=== PATIENT | female | born 1955 | race Caucasian/White ===

== ENCOUNTER 2020-05-06 11:52 | Emergency (ER) | payer BC ==
--- NOTE | 2020-05-06 12:31 | ER Document Report ---
ED Medical Screen (RME) - General Chief Complaint: Irregular Pulse Stated Complaint: SOB/IRREGULAR HEARTBEAT/BACK PRESSURE Time Seen by Provider: 05/06/20 12:24 - HPI Notes: 05/06/20 12:32 65-year-old female with past medical history for rapid heart rate to the emergency department with complaints of fluctuating heart rate, back pain, shortness of breath is been ongoing for the past 3 days. She states that this happened to her about a year ago and she had a stress test which was negative and her development vice president put her on metoprolol Q at bedtime. She states she has been doing well until just 3 days ago when her symptoms started again. Denies any abner chest pain. She denies any recent travel. She denies any recent surgeries. Denies any leg swelling. Brief medical exam reveals lung auscultations that are clear without any wheezing, rhonchi or rales. No murmurs rubs or gallops. I performed a brief medical screening exam on the patient determined that the patient needs further evaluation and management by main side provider. I have placed initial orders to help expedite care.
[2020-05-06 13:09] LABS: ABSOLUTE BASOPHILS # (AUTO) 0.1 10^3/uL (0.0-0.2); ABSOLUTE EOSINOPHILS # (AUTO) 0.1 10^3/uL (0.0-0.6); ABSOLUTE MONOCYTES (AUTO) 0.6 10^3/uL (0.1-1.4); ABSOLUTE NEUT (AUTO) 3.9 10^3/uL (1.7-8.2); EOSINOPHILS % (AUTO) 0.9 % (0-6); HEMATOCRIT 45.5 % (36.0-47.0); HEMOGLOBIN 15.5 g/dL (12.0-15.5); LYMPHOCYTES % (AUTO) 29.9 % (13-45); MEAN CORPUSCULAR HEMOGLOBIN 30.6 pg (27.0-33.4); MEAN CORPUSCULAR VOLUME 90 fl (80-97); MONOCYTES % (AUTO) 8.8 % (3-13); PLATELET COUNT 270 10^3/uL (150-450); RED BLOOD COUNT 5.06 10^6/uL (3.72-5.28); RED CELL DISTRIBUTION WIDTH 14.5 % (11.5-14.0); SEGMENTED NEUTROPHILS % (AUTO) 59.4 % (42-78); TOTAL CELLS COUNTED % (AUTO) 100 %; WHITE BLOOD COUNT 6.6 10^3/uL (4.0-10.5)
[2020-05-06 13:16] LABS: ALBUMIN 4.6 g/dL (3.5-5.0); ALKALINE PHOSPHATASE 88 U/L (38-126); ANION GAP 12 (5-19); ASPARTATE AMINO TRANSFERASE 19 U/L (14-36); BILIRUBIN,DIRECT 0.1 mg/dL (0.0-0.4); BILIRUBIN,TOTAL 0.5 mg/dL (0.2-1.3); BLOOD UREA NITROGEN 15 mg/dL (7-20); CARBON DIOXIDE 26 mmol/L (22-30); CHLORIDE 102 mmol/L (98-107); CREATINE KINASE 37 U/L (30-135); GLUCOSE 93 mg/dL (75-110); POTASSIUM 4.9 mmol/L (3.6-5.0); TOTAL PROTEIN 7.9 g/dL (6.3-8.2)
--- NOTE | 2020-05-06 13:21 | RADIOLOGY REPORT (SQ) ---
EXAM DESCRIPTION: CHEST 2 VIEWS IMAGES COMPLETED DATE/TIME: 05/06/2020 1:00 pm REASON FOR STUDY: chest pain palpitations COMPARISON: None. EXAM PARAMETERS: NUMBER OF VIEWS: two views TECHNIQUE: Digital Frontal and Lateral radiographic views of the chest acquired. RADIATION DOSE: NA LIMITATIONS: none FINDINGS: LUNGS AND PLEURA: No opacities, masses or pneumothorax. No pleural effusion. MEDIASTINUM AND HILAR STRUCTURES: No masses or contour abnormalities. HEART AND VASCULAR STRUCTURES: Heart normal size. No evidence for failure. BONES: No acute findings. HARDWARE: None in the chest. OTHER: No other significant finding. IMPRESSION: NO ACUTE RADIOGRAPHIC FINDING IN THE CHEST. TECHNICAL DOCUMENTATION: JOB ID: [id number] 2010 Walk[employer]in Appointment Sched[employer]- All Rights Reserved Reading location - IP/workstation name: [email or web address]
[2020-05-06 13:24] LABS: CREATINE KINASE MB 0.39 ng/mL (<4.55)
[2020-05-06 13:29] LABS: TROPONIN I < 0.012 ng/mL
--- NOTE | 2020-05-06 14:25 | EKG REPORT ---
SEVERITY:- ABNORMAL ECG - SINUS RHYTHM VENTRICULAR TRIGEMINY : Confirmed by: Delano Baker MD 06-May-2020 14:24:58
[2020-05-06] MEDS ORDERED: NORMAL SALINE 1000 ML 1,000 ML IV ONE (15:16)
--- NOTE | 2020-05-06 15:16 | ER Document Report ---
ED Cardiac - General Chief Complaint: Palpitations Stated Complaint: SOB/IRREGULAR HEARTBEAT/BACK PRESSURE Time Seen by Provider: 05/06/20 12:24 Primary Care Provider: SHARMILA GAYTAN MD [ACTIVE STAFF] - Follow up as needed Notes: This 65-year-old woman presents to the emergency department with a history PVCs and treated with metoprolol 25 ER. She has travel to the area from [place] [employer] and has noted that she is having increased episodes of ectopy and palpitations over the past 3 days she also notes an associated shortness of breath and pressure across the back. - Related Data Allergies/Adverse Reactions: nitrofurantoin Allergy (Verified 05/06/20 13:45) sulfamethoxazole [From Sulfamethoxazole-Trimethoprim] Allergy (Verified 05/06/20 13:45) Tetanus Vaccines and Toxoid Allergy (Verified 05/06/20 13:45) trimethoprim [From Sulfamethoxazole-Trimethoprim] Allergy (Verified 05/06/20 13:45) Penicillins Adverse Reaction (Verified 05/06/20 13:45) Past Medical History - Social History Smoking Status: Former Smoker Family History: Reviewed & Not Pertinent Patient has homicidal ideation: No Review of Systems - Review of Systems Notes: Constitutional: Negative for fever. HENT: Negative for sore throat. Eyes: Negative for visual changes. Cardiovascular: + Palpitation. Respiratory: Negative for shortness of breath. Gastrointestinal: Negative for abdominal pain, vomiting or diarrhea. Genitourinary: Negative for dysuria. Musculoskeletal: Negative for back pain. Skin: Negative for rash. Neurological: Negative for headaches, weakness or numbness. 10 point ROS negative except as marked above and in HPI. Physical Exam - Vital signs Vitals: Temp Pulse Resp BP Pulse Ox 98.3 F 91 18 114/70 98 05/06/20 12:25 05/06/20 12:25 05/06/20 12:25 05/06/20 12:25 05/06/20 12:25 - Notes Notes: PHYSICAL EXAMINATION: Physical Exam: General: Well-nourished well-developed 65-year-old woman in no acute distress HEENT: NC/AT, pupils equal round and reactive to light, MM moist,nares clear, oropharynx clear, airway patent Neck: supple, no adenopathy, no masses. Good range of motion Lungs: clear, no wheezing, no rales no rhonchi CVS: Regular rate and rhythm, no ectopic beats Abdomen: Soft, active, nontender, no masses, no hepatosplenomegaly Ext: No edema, clubbing or cyanosis. Neuro: Alert and responsive, moving all 4 extremities on command, cranial nerves intact, no focal findings Skin: Intact no open lesions, no rash Course - Re-evaluation Re-evalutation: 05/06/20 16:51 The patient continues to have PVCs, after the fluid bolus and lorazepam the bigeminy has resolved and the patient is having occasional PVCs. Patient also notes that she had used lorazepam in the past when she has had episodes of PVCs, however, she did not bring the medication on this trip. I spoken with the movie shot cameraman Dr. Gaytan, he will be able to see the patient in the office to . I have noted to the patient that someone from the cardiology office will reach out to her regarding the time. I am also giving her the office information. - Vital Signs Vital signs: Temp Pulse Resp BP Pulse Ox 98.1 F 91 22 H 122/77 100 05/06/20 15:40 05/06/20 12:25 05/06/20 17:01 05/06/20 17:01 05/06/20 17:01 - Laboratory Result Diagrams: 05/06/20 12:40 05/06/20 12:40 Laboratory results interpreted by me: 05/06/20 12:40 RDW 14.5 H - Diagnostic Test Radiology reviewed: Image reviewed, Reports reviewed Radiology results interpreted by me: 05/06/20 16:52 Chest X-Ray 05/06/20 12:31 IMPRESSION: NO ACUTE RADIOGRAPHIC FINDING IN THE CHEST. - EKG Interpretation by Or Rate: Normal - EKG interpreted by Dr. Henriquez: Normal sinus rhythm, rate 82, [place] interval 160ms QT interval 376ms, normal axis, multiple PVCs, no acute ST or T wave abnormalities, no ischemic findings, there is no EKG for comparison in our system. Interpretation: Normal sinus rhythm with multiple PVCs Discharge - Discharge Clinical Impression: Frequent PVCs, Palpitations Condition: Good Disposition: HOME, SELF-CARE Instructions: Benzodiazepines ([facility]) Additional Instructions: You were seen in the emergency department today with palpitations and frequent PVCs. Evaluation in the emergency department reveals that there were no signs of injury to the heart muscle or congestive heart failure. I have consulted with the local movie shot cameraman, Dr. Gaytan. He is planning to see you in his office on Thursday afternoon. I am giving you his phone number and referral information. These continue your metoprolol dose, you are being discharged with 10 tablets of lorazepam 0.5 mg. If you are having worsening symptoms or have other concerns you may return to the emergency department for further evaluation and treatment. HOME CARE INSTRUCTIONS & INFORMATION: Thank you for choosing us for your medical needs. We hope you're satisfied with the care you received. After you leave, you must properly care for your problem and, at the same time, observe its progress. Any condition can change. Some illnesses can change rapidly over hours or days. If your condition worsens, return to the Emergency Department or see your physician promptly. ABOUT YOUR X-RAYS AND EKG'S: If you had an EKG or X-rays taken, they have been read by the Emergency Physician. The X-rays and EKG's will also be read by a Radiologist or Cra within 24 hours. If discrepancies are noted, you will be notified by telephone. Please be certain the ED has a correct telephone number & address where you can be reached. Also, realize that some fractures or abnormalities do not show up on initial X-rays. If your symptoms continue, see your physician. ABOUT YOUR LABORATORY TEST: If you had laboratory tests, the results have been reviewed by the Emergency Physician. Some test results (for example cultures) may not be available for several days. You will be contacted if any test result shows you need additional treatment. Please be certain the ED has a correct telephone number and address where you can be reached. ABOUT YOUR MEDICATIONS: You will receive instructions on how to take your medicine on the prescription label you receive. Additional information may be provided by the Pharmacy. If you have questions afterwards, call the ED for clarification or further instructions. Some prescribed medications may cause drowsiness. Do not perform tasks such as driving a car or operating machinery without consulting your Pharmacist. If you feel you need a refill of pain medication, your condition will need re-evaluation. Please do not call for a refill of any medication. ABOUT YOUR SIGNATURE: Signature of this document acknowledges to followin. Understanding that you received emergency treatment and that you may be released before al medical problems are known or treated. Please be certain the ED has a correct phone number & address where you can be reached. 2. Acknowledgement that you will arrange for follow-up care as recommended. 3. Authorization for the Emergency Physician to provide information to your follow-up Physician in order to maximize your care. AT ANY TIME, IF YOUR SYMPTOMS CHANGE SIGNIFICANTLY OR WORSEN OR YOU DEVELOP NEW SYMPTOMS, RETURN TO THE EMERGENCY DEPARTMENT IMMEDIATELY FOR RE-EVALUATION. OUR GOAL IS TO PROVIDE EXCELLENT MEDICAL CARE! WE HOPE THAT WE HAVE MET YOUR EXPECTATIONS DURING YOUR EMERGENCY DEPARTMENT VISIT AND THAT YOU FEEL YOU HAVE RECEIVED EXCELLENT CARE! Prescriptions: Lorazepam 0.5 mg PO TID PRN #10 tablet PRN Reason: Anxiety Referrals: SHARMILA GAYTAN MD [ACTIVE STAFF] - Follow up as needed
[2020-05-06] MEDS ORDERED: LORAZEPAM INJ 2 MG/1 ML VIAL IV ONE (15:17)
[2020-05-06 17:38] VITALS: BP 122/77
== END 2020-05-06 17:41 | disposition home or self-care (01) ==
LOC: ER 11:52
DX: I49.3 Ventricular premature depolarization (principal); R00.2 Palpitations; R06.02 Shortness of breath; Z87.891 Personal history of nicotine dependence; Z88.1 Allergy status to other antibiotic agents; Z88.7 Allergy status to serum and vaccine; Z79.899 Other long term (current) drug therapy
CPT/HCPCS: 93005; 99285; 96361; 96374; 36415; 82553; 82550; 85025; 80053; 84484; 71046; 93010; J2060; J7030